=== PATIENT | female | born 1960 | race Two or more races ===

== ENCOUNTER 2017-10-30 10:35 | Emergency (ER) | payer SELFPAY ==
[2017-10-30 11:20] LABS: BASO % 0.5 % (0.0-2.0); EOS # 0.1 K/uL (0.0-0.7); EOS % 1.8 % (0.0-4.0); HEMOGLOBIN 11.9 g/dL (12.0-16.0); LYMPH # 1.8 K/uL (1.0-4.3); LYMPH % 32.9 % (20.0-40.0); MEAN CELL VOLUME 95.9 fl (81.0-99.0); MEAN CORPUSCULAR HEMOGLOBIN 33.2 pg (27.0-31.0); MEAN CORPUSCULAR HGB CONC 34.6 g/dL (33.0-37.0); MEAN PLATELET VOLUME 10.2 fl (7.2-11.7); MONO # 0.5 K/uL (0.0-0.8); MONO % 8.8 % (0.0-10.0); NRBC % 0.1 % (0.0-0.0); RBC 3.58 Mil/uL (3.80-5.20); RED CELL DISTRIBUTION WIDTH 12.9 % (11.5-14.5); WHITE BLOOD COUNT 5.4 K/uL (4.8-10.8)
--- NOTE | 2017-10-30 11:30 | ED PDOC ---
HPI: Psych/Substance Abuse Time Seen by Provider: 10/30/17 10:39 Chief Complaint (Nursing): Psychiatric Evaluation Chief Complaint (Provider): Psychiatric Evaluation ED Caveat: Acuity of Condition, Uncooperative History Per: EMS History/Exam Limitations: clinical condition Onset/Duration Of Symptoms: Hrs Additional Complaint(s): 57 year old female with a past medical history of schizophrenia, bipolar disorder, depression, and acid reflux brought to the ED via EMS for psychiatric evaluation. Patient found out this morning that her mother in [place] and has been acting erratic since. Patient refused to take her psychiatric medication this morning and expressed suicidal ideation at home. Family members state that patient hit her head against the wall, thus prompting call for EMS. All history was obtained from EMS due to patient's current state of mind. As per EMS, the patient does not take anti-coagulants and there was no loss of consciousness at the time of head injury or vomiting since the injury. PMD: Sarah Zambrano Past Medical History Reviewed: Historical Data, Nursing Documentation, Vital Signs Vital Signs: Last Vital Signs Temp 97 F L 10/30/17 11:19 Pulse 69 10/30/17 11:19 Resp 19 10/30/17 11:19 BP 111/76 10/30/17 11:19 Pulse Ox 97 10/30/17 11:19 - Medical History PMH: Bipolar Disorder, Depression, GERD, Schizophrenia - Family History Family History: States: Unknown Family Hx - Allergies Allergies/Adverse Reactions: Allergies Allergy/AdvReac Type Severity Reaction Status Date / Time No Known Allergies Allergy Verified 10/30/17 10:38 Review of Systems ROS Statement: Except As Marked, All Systems Reviewed And Found Negative Psych: Positive for: Other (psychiatric evaluation ) Physical Exam - Reviewed Nursing Documentation Reviewed: Yes Vital Signs Reviewed: Yes - Physical Exam Comments: GENERAL APPEARANCE: Patient is awake, speaking nonsensically, pacing in ER exam room; emotionally distraught and tearful. HEAD: (+) 2cm x 2cm frontal scalp hematoma superior to right eyebrow. (+) faint ecchymosis, (-) palpable bony deformity (-) tenderness. EYES: (-) conjunctival pallor, (-) scleral icterus, (-) nystagmus. (-) periorbital swelling, (-) periorbital tenderness. EOMI. Pupils equal and reactive. ENMT: Mucous membranes moist. Airway patent: (-) stridor. Pharynx clear, uvula midline. Airway patent (-) stridor. NECK: Supple, FROM (-) tenderness, (-) stiffness, (-) lymphadenopathy. CHEST AND RESPIRATORY: (-) rales, (-) rhonchi, (-) wheezes; breath sounds equal. Respirations even and nonlabored. ABDOMEN: Soft, nontender (-) distention NEURO AND PSYCH: Mental status as above. Gait steady. - Laboratory Results Result Diagrams: 10/30/17 10:56 10/30/17 10:56 - ECG O2 Sat by Pulse Oximetry: 97 (RA) Pulse Ox Interpretation: Normal Medical Decision Making Medical Decision Making: Time: 1048 Impression: Psychiatric Evaluation, Closed Head Injury Plan: -- Head CT w/o Contrast -- Maxillofacial CT w/o Contrast -- Alcohol Serum -- CMP -- Urine Drug Screen -- CBC with differentials -- Ativan 2 mg IM -- Haldol 5 mg IM -- [employer] -- 1:1 observation -- Urinalysis Time: 1058 Plan: -- For safety of patient and ED staff, 4 point restraints ordered due to increased agitation and refusal to stay in ED bed. Time: 1142 -- 4 point restraints were removed. Time: 1159 CTs reviewed, radiology report follows HEAD CT RESULTS FINDINGS: HEMORRHAGE: No intracranial hemorrhage. BRAIN: No mass effect or edema. No atrophy or chronic microvascular ischemic changes. VENTRICLES: Unremarkable. No hydrocephalus. CALVARIUM: Unremarkable. PARANASAL SINUSES: Unremarkable as visualized. No significant inflammatory changes. MASTOID AIR CELLS: Unremarkable as visualized. No inflammatory changes. OTHER FINDINGS: Right frontal scalp hematoma. IMPRESSION: Right frontal scalp hematoma. No calvarial fracture or evidence of acute intracranial pathology. PROCEDURE: CT MAXILLOFACIAL BONES WITHOUT CONTRAST HISTORY: head injury COMPARISON: None TECHNIQUE: Contiguous axial CT images of the maxillofacial bones were obtained. Coronal and sagittal reformats were generated. Radiation dose: Total exam DLP = 706.8 mGy-cm. This CT exam was performed using one or more of the following dose reduction techniques: Automated exposure control, adjustment of the mA and/or kV according to patient size, and/or use of iterative reconstruction technique. FINDINGS: NASAL BONES: Unremarkable. ORBITS: Unremarkable. PARANASAL SINUSES/ MASTOIDS: Clear. MAXILLA: Unremarkable. MANDIBLE/ TEMPOROMANDIBULAR JOINTS: Unremarkable. SKULL BASE: Unremarkable. TEMPORAL BONES: Middle ears and mastoid grossly unremarkable. OTHER FINDINGS: Right frontal scalp hematoma. IMPRESSION: Right frontal scalp hematoma. No acute fracture. 1230 Labs reviewed. Potassium 3.1. EKG and 20mEq of Potassium chloride ordered. 1300 Patient sleeping comfortably in ED stretcher. No acute distress noted. Pending crisis evaluation. 1410 EKG reviewed: SB at 53 bpm (-) ST elevations, QTc 420 1440 On re-evaluation, patient sleeping comfortably. Daughter at bedside. Pending crisis evaluation. 1545 Patient resting comfortably in ED stretcher. Family at bedside. 1745 Per crisis evaluation, patient stable for discharge per Dr Fan with the diagnosis of Adjustment Disorder. 1800 On re-evaluation, patient reports improvement of symptoms,. On exam, patient remains AAOx3, in no acute distress. Lungs clear to auscultation, cardiac RRR, abdomen soft, non-tender, repeat neuro exam shows no focal findings. VSS, stable for discharge. Patient has a ride home with family members at bedside. Patient was observed in ED for 7+ hours with no evidence of clinical deterioration. Lab /Diagnostic results d/w the patient in great detail. Diagnosis of adjustment disorder, facial contusion, closed head injury d/w the patient. Based on history, exam and diagnostic results, plan will be for outpatient follow up. Patient instructed to follow-up with pmd / referral provided / the clinic in 1- 2 days without fail. Advised to take medication as prescribed. Return to the emergency room at any time for any new or worsening symptoms. Patient states she fully agrees with and understands discharge instructions. States that she agrees with the plan and disposition. Verbalized and repeated discharge instructions and plan. I have given the patient opportunity to ask any additional questions. Scribe Attestation: Documented by Aya Ghazy, acting as a scribe for Mi Stearns PA-C. Provider Scribe Attestation: All medical record entries made by the Scribe were at my direction and personally dictated by me. I have reviewed the chart and agree that the record accurately reflects my personal performance of the history, physical exam, medical decision making, and the department course for this patient. I have also personally directed, reviewed, and agree with the discharge instructions and disposition. Disposition - Clinical Impression Clinical Impression: Adjustment disorder, Facial contusion, Closed head injury - Patient ED Disposition Is Patient to be Admitted: No Counseled Patient/Family Regarding: Studies Performed, Diagnosis, Need For Followup, Rx Given - Disposition Referrals: [facility] [Outside] Ad Zambrano MD [Medical Doctor] - Disposition: Routine/Home Disposition Time: 18:09 Condition: STABLE Additional Instructions: FOLLOW UP WITH PMD/PSYCH DIRECTED BY CRISIS. RETURN TO ED WITH ANY NEW OR WORSENING SYMPTOMS. Instructions: Adjustment Disorder, Closed Head Injury, Contusion (DC) Forms: [employer] (Botswanan) Print Language: TELUGU - POA Present On Arrival: Falls Or Trauma Results - Lab Results Lab Results: 10/30/17 10/30/17 10:56 10:56 WBC 5.4 RBC 3.58 L Hgb 11.9 L Hct 34.3 MCV 95.9 MCH 33.2 H MCHC 34.6 RDW 12.9 Plt Count 222 MPV 10.2 Neut % (Auto) 56.0 Lymph % (Auto) 32.9 [place] % (Auto) 8.8 Eos % (Auto) 1.8 Baso % (Auto) 0.5 Neut # (Auto) 3.0 Lymph # (Auto) 1.8 [place] # (Auto) 0.5 Eos # (Auto) 0.1 Baso # (Auto) 0.0 Sodium 144 Potassium 3.1 L Chloride 109 H Carbon Dioxide 22 Anion Gap 16 BUN 15 Creatinine 0.5 L Est GFR ( Amer) > 60 Est GFR (Non-Af Amer) > 60 Random Glucose 106 H Calcium 9.6 Total Bilirubin 1.4 H AST 21 ALT 26 Alkaline Phosphatase 64 Total Protein 7.4 Albumin 4.4 Globulin 3.0 Albumin/Globulin Ratio 1.5 Alcohol, Quantitative < 10
[2017-10-30 11:31] LABS: ALB/GLOB RATIO 1.5 (1.0-2.1); ALBUMIN 4.4 g/dL (3.5-5.0); ALT/SGPT 26 U/L (9-52); AST/SGOT 21 U/L (14-36); BLOOD UREA NITROGEN 15 mg/dl (7-17); CALCIUM 9.6 mg/dL (8.4-10.2); GFR AFRICAN-AMERICAN > 60; GFR NON-AFRICAN AMERICAN > 60
--- NOTE | 2017-10-30 12:00 | CT ---
PROCEDURE: CT HEAD WITHOUT CONTRAST. HISTORY: trauma COMPARISON: None available. TECHNIQUE: Axial computed tomography images were obtained through the head/brain without intravenous contrast. Radiation dose: Total exam DLP = 737.7 mGy-cm. This CT exam was performed using one or more of the following dose reduction techniques: Automated exposure control, adjustment of the mA and/or kV according to patient size, and/or use of iterative reconstruction technique. FINDINGS: HEMORRHAGE: No intracranial hemorrhage. BRAIN: No mass effect or edema. No atrophy or chronic microvascular ischemic changes. VENTRICLES: Unremarkable. No hydrocephalus. CALVARIUM: Unremarkable. PARANASAL SINUSES: Unremarkable as visualized. No significant inflammatory changes. MASTOID AIR CELLS: Unremarkable as visualized. No inflammatory changes. OTHER FINDINGS: Right frontal scalp hematoma. IMPRESSION: Right frontal scalp hematoma. No calvarial fracture or evidence of acute intracranial pathology.
--- NOTE | 2017-10-30 12:03 | CT ---
PROCEDURE: CT MAXILLOFACIAL BONES WITHOUT CONTRAST HISTORY: head injury COMPARISON: None TECHNIQUE: Contiguous axial CT images of the maxillofacial bones were obtained. Coronal and sagittal reformats were generated. Radiation dose: Total exam DLP = 706.8 mGy-cm. This CT exam was performed using one or more of the following dose reduction techniques: Automated exposure control, adjustment of the mA and/or kV according to patient size, and/or use of iterative reconstruction technique. FINDINGS: NASAL BONES: Unremarkable. ORBITS: Unremarkable. PARANASAL SINUSES/ MASTOIDS: Clear. MAXILLA: Unremarkable. MANDIBLE/ TEMPOROMANDIBULAR JOINTS: Unremarkable. SKULL BASE: Unremarkable. TEMPORAL BONES: Middle ears and mastoid grossly unremarkable. OTHER FINDINGS: Right frontal scalp hematoma. IMPRESSION: Right frontal scalp hematoma. No acute fracture.
[2017-10-30] MEDS ORDERED: Potassium Chloride 20 mEq ER Tab PO ONE (12:34)
[2017-10-30 17:18] VITALS: RESP 18
[2017-10-30 18:35] VITALS: BP 130/76; PULSE 86; TEMP 96.8
--- NOTE | 2017-10-31 08:47 | CARD ---
APPROVED REPORT EKG Measurement Heart [id number] <Conclusion> Sinus bradycardia Otherwise normal ECG
[2017-11-01 21:18] VITALS: O2SAT 97
== END 2017-10-30 18:40 | disposition home or self-care (01) ==
LOC: H.ER 10:35
DX: F43.20 Adjustment disorder, unspecified (principal); S00.03XA Contusion of scalp, initial encounter; S00.83XA Contusion of other part of head, initial encounter; Y92.89 Other specified places as the place of occurrence of the external cause; F20.9 Schizophrenia, unspecified; F31.9 Bipolar disorder, unspecified; G56.00 Carpal tunnel syndrome, unspecified upper limb; K21.9 Gastro-esophageal reflux disease without esophagitis
CPT/HCPCS: 70450; 70486; 80053; 85025; 93005; 96372; 99285; G0480; J1630; J2060